=== PATIENT | female | born 1990 | race Caucasian/White ===

== ENCOUNTER 2019-09-15 11:32 | Emergency (ER) | payer BC ==
[2019-09-15 11:46] VITALS: BMI 25.4
[2019-09-15 11:59] LABS: BASO % 0.6 % (0-2.0); EOS % 1.5 % (0-4.5); HEMATOCRIT 34.5 % (32.4-45.2); HEMOGLOBIN 11.5 GM/dL (10.7-15.3); LYMPH % 23.9 % (8-40); MCHC 33.4 g/dl (32.0-36.0); MEAN CELL VOLUME 86.9 fl (80-96); MEAN PLT VOLUME 10.1 fl (7.5-11.1); MONO % 5.2 % (3.8-10.2); NEUT % 68.8 % (42.8-82.8); PLATELET COUNT 213 K/MM3 (134-434); RBC 3.97 M/mm3 (3.60-5.2); RDW 13.8 % (11.6-15.6); WHITE BLOOD COUNT 9.9 K/mm3 (4.0-10.0)
--- NOTE | 2019-09-15 12:15 | PDOC ---
History of Present Illness - General Chief Complaint: Vaginal Sxs Stated Complaint: 18 WEEKS WATER BROKE Time Seen by Provider: 09/15/19 11:37 - History of Present Illness Initial Comments: 09/15/19 12:14 HPI: 28 y/o F 18wks presenting with vaginal fluid discharge today. She reports nausea while making breakfast and 1 episode of emesis followed by a popping sound and a gush of fluid. She tried to lay down but had another episode of fluid from the vagina. She reported minimal lower abd cramping. She denies fever, chills, chest pain, SOB, vaginal bleeding, vaginal discharge, dysuria. PMHx: as noted above ROS: as noted SHx: Denies tobacco use; no alcohol use; no rec drugs Allergies: NKDA ROS: GENERAL/CONSTITUTIONAL: No fever or chills. No weakness. HEAD, EYES, EARS, NOSE AND THROAT: No change in vision. No ear pain or discharge. No sore throat. CARDIOVASCULAR: No chest pain or shortness of breath RESPIRATORY: No cough, wheezing, or hemoptysis. GASTROINTESTINAL: +nausea, vomiting; no diarrhea or constipation. GENITOURINARY: No dysuria, frequency, or change in urination. MUSCULOSKELETAL: No joint or muscle swelling or pain. No neck or back pain. SKIN: No rash NEUROLOGIC: No headache, vertigo, loss of consciousness, or change in strength/sensation. ENDOCRINE: No increased thirst. No abnormal weight change HEMATOLOGIC/LYMPHATIC: No anemia, easy bleeding, or history of blood clots. ALLERGIC/IMMUNOLOGIC: No hives or skin allergy. PE: GENERAL: Awake, alert, and fully oriented, no acute distress HEAD: No signs of trauma, normocephalic, atraumatic EYES: EOMI, sclera anicteric, conjunctiva clear ENT: Auricles normal inspection, hearing grossly normal, nares patent, oropharynx clear without exudates. Moist mucosa NECK: Normal ROM, no lymphadenopathy LUNGS: No increased work of breathing, symmetrical chest rise, clear to auscultation bilaterally, no wheezes, crackles or rhonchi HEART: Regular rate, regular rhythm, normal S1 and S2, no murmur, peripheral pulses 2+ and equal bilaterally. ABDOMEN: Soft, nondistended, nontender. No guarding, no rebound. No masses. No CVAT : normal appearing external genitalia with clear sticky fluid MUSCULOSKELETAL: FROM NEUROLOGICAL: Cranial nerves II through XII grossly intact. Normal speech, stable gait, no focal sensorimotor deficits SKIN: Warm, Dry, normal turgor, no rashes or lesions noted Past History - Medical History Allergies/Adverse Reactions: Allergies Allergy/AdvReac Type Severity Reaction Status Date / Time No Known Allergies Allergy Verified 10/26/14 11:26 Home Medications: Ambulatory Orders Azithromycin 250 mg PO DAILY #4 tablet 10/26/14 Anemia: No Asthma: No Cancer: No CVA: No COPD: No - Surgical History Abdominal Surgery: No Appendectomy: Yes Cholecystectomy: No Gastric Stapling: No - Reproductive History Is Patient Now?: Yes (#): 1 Para: 0 - Immunization History Td Vaccination: Yes TDAP Vaccination: Yes Immunization Up to Date: No - Psycho-Social/Smoking History Smoking Status: No Smoking History: Never smoked Have you smoked in the past 12 months: No Number of Cigarettes Smoked Daily: 0 Information on smoking cessation initiated: No - Substance Abuse Hx (Audit-C & DAST Scrn) How often the patient has a drink containing alcohol: Never Score: In Men: 4 or > Positive; In Women: 3 or > Positive: 0 Screen Result (Pos requires Nsg. Audit-10AR): Negative In the last yr the pt used illegal drug/Rx for NonMed reason: No Score: Yes response is considered Positive: 0 Screen Result (Positive result requires Nsg. DAST-10): Negative *Physical Exam - Vital Signs Last Vital Signs Temp Pulse Resp BP Pulse Ox 137 H 20 125/80 100 09/15/19 11:43 09/15/19 11:43 09/15/19 11:43 09/15/19 11:43 ED Treatment Course - LABORATORY CBC & Chemistry Diagram: 09/15/19 11:50 09/15/19 11:50 - ADDITIONAL ORDERS Additional order review: 09/15/19 11:50 RBC 3.97 MCV 86.9 MCHC 33.4 RDW 13.8 MPV 10.1 Neutrophils % 68.8 D Lymphocytes % 23.9 D Monocytes % 5.2 Eosinophils % 1.5 Basophils % 0.6 Medical Decision Making - Medical Decision Making 09/15/19 13:40 28 y/o F 18wks presenting with vaginal fluid discharge today following an episode of emesis in the setting of recent US with dilated cervix. HR 137. Concern for PPROM. -cbc, cmp, t&s, pelvic US -consult Ob Dr Soto 09/15/19 14:27 US with minimal amniotic fluid and single iup [address] soto and patient at length; discussed 2 options, volunatry induction to abort or to DC home with return pcxns for spontaneous recommending 2g ancef patient would like to go home with strict return pcxns including fever or wrosening pain Discharge - Discharge Information Problems reviewed: Yes Clinical Impression/Diagnosis: Premature rupture of membranes, premature rupture of membranes Condition: Stable Disposition: HOME - Follow up/Referral Referrals: Lisa Soto MD [Staff Physician] - ON STAFF,NOT [Primary Care Provider] - - Patient Discharge Instructions Patient Printed Discharge Instructions: Labor, Premature Rupture of Membranes Additional Instructions: your ultrasound shows premature rupture of membranes, low amniotic fluid, and an open cervix. you will likely go on to go into pre-term labor. you also were given option of being induced into labor to avoid high infection risk associated with expectant waiting in the setting of ruptured membranes. your ultrsaound today showed the fetus at 18 weeks. you should return for any fever, severe pain, persistant vomiting or any concerns. you need to have repeat blood work drawn in 48 hours to evaluate for developement of infection. you may also follow up with DR Monroy , Crayon Molding Machine Operator. see referral information and call to schedule an appointment. - Post Discharge Activity
[2019-09-15 12:16] LABS: ALBUMIN 2.9 g/dl (3.4-5.0); BILIRUBIN,TOTAL 0.3 mg/dL (0.2-1); BLOOD UREA NITROGEN 8.7 mg/dL (7-18); CALCIUM 8.7 mg/dL (8.5-10.1); CREATININE 0.8 mg/dL (0.55-1.3); POTASSIUM 3.7 mmol/L (3.5-5.1)
--- NOTE | 2019-09-15 12:16 | PDOC ---
Attending Attestation - Resident Resident Name: Stephanie Wilson - ED Attending Attestation I have performed the following: I have examined & evaluated the patient, The case was reviewed & discussed with the resident, I agree w/resident's findings & plan, Exceptions are as noted - HPI HPI: 09/15/19 12:11 28 yo F currently 18 weeks by 7 week us dates MUNIRA 02/15 here with sudden onset of fluid per vagina. pt states she was told her cervix was short and opened recently. was puton bedrest for last week. and today she threw up, shortly after had gush of fluid, no vaginal bleeding. lied down. had second gush of fluid. no f/c no other complaints. - Physicial Exam PE: 09/15/19 12:13 awake alert lungs clear bilat heart rrr no mrg abd soft nt nd ext wwp. ext vagina with mucousy clear fluid, no pelvic performed due to concerns for rutpure membranes. - Medical Decision Making 09/15/19 12:13 28 yo F 18 weeks , with concerns for premature rupture of membranes. plan transabd us, d/w dr monroy lead electrical controls engineer OB. transabdominal us with decreased amniotic fluid, and open cervix. 09/15/19 12:26 dr tadeo pt primary Family practice doc called at [phone] 09/15/19 13:04 Jay regalado informed pt update. had seen her for routine care. pt blood type AB positive 09/15/19 14:01 us with low fluid, pos heart rate. cervix open. c/w ruptured membranes. seen and examined by DR Monroy. offered induction vs. expectant management. pt advised regarding risk of infection if she chooses expetant management. given dose of ancef 2g, dc home. will require close fu to hav ongoing eval for high infection risk d/w dr Tadeo her pcp. pt dc to home. Discharge - Discharge Information Problems reviewed: Yes Clinical Impression/Diagnosis: Premature rupture of membranes, premature rupture of membranes Condition: Stable Disposition: HOME - Admission No - Follow up/Referral Referrals: ON STAFF,NOT [Primary Care Provider] - Lisa Thomson MD [Staff Physician] - - Patient Discharge Instructions Patient Printed Discharge Instructions: Premature Rupture of Membranes, Labor Additional Instructions: your ultrasound shows premature rupture of membranes, low amniotic fluid, and an open cervix. you will likely go on to go into pre-term labor. you also were given option of being induced into labor to avoid high infection risk associated with expectant waiting in the setting of ruptured membranes. your ultrsaound today showed the fetus at 18 weeks. you should return for any fever, severe pain, persistant vomiting or any concerns. you need to have repeat blood work drawn in 48 hours to evaluate for developement of infection. you may also follow up with DR Monroy , Carpet Binder. see referral information and call to schedule an appointment. - Post Discharge Activity
[2019-09-15 13:14] VITALS: TEMP 98.9
[2019-09-15] MEDS ORDERED: ceFAZolin 2 GRAM PREMIX BAG IVPB ONE (13:15)
[2019-09-15] MEDS ORDERED: CEFAZOLIN 2 GM in DEXTROSE 5%-WATER - 50 ML IVPB ONE (13:18)
--- NOTE | 2019-09-15 13:26 | CON.OBG ---
Consult Consult Specialty:: dental ceramist Referred by:: Steve kohler Res, MD Reason for Consultation:: 18 wks PPROM - History of Present Illness Chief Complaint: 28 yrs , 18 wks GA c/o PPROM since 11.00AM large amount of fluid . no c/o bleeding , no c/o cramps , FM felt . EDC by celena peterssigned is 02/16/20 History of Present Illness: PNC in [place] with PMD , Dr Reyes. pt states her pn course was uneventful. Dates not known . her dating sono at 7 weeks she is assigned EDC 02/16/20 . Her last anatomy sono was done 1 week ago , she only knows they were concerned about cervix . Pt portal on phone lab results noted . 08/30 : AB pos , HBS ag neg , Rubella immune , gc/ct neg, urinr c/s neg , pap was done , Quantiferon neg. Bl Gl 113 . rx po vit & po Pyridoxine 25 mg daily - History Source History Provided By: Patient, Medical Record Limitations to Obtaining History: No Limitations - Past Medical History Cardio/Vascular: No: HTN, Murmur Pulmonary: No: Asthma Gastrointestinal: Yes: Other (none known ) Hepatobiliary: No: Hepatitis B Renal/: No: UTI ...: Yes ...: 3 (G1 2012 sp ab 1st trimester ) ...Para: 1 (G2 02/2014 at [facility], Fullterm , no complications ) Infectious Disease: Yes: Other (declined ) Psych: No: Addictions, Anxiety, Bipolar, Depression, Panic, Psychosis, Schizophrenia, Other Endocrine: No: Diabetes Mellitus, Hyperthyroidism, Hypothyroidism - Past Surgical History Past Surgical History: Yes: Appendectomy (2 months post , Early 2014 ) - Alcohol/Substance Use Hx Alcohol Use: No History of Substance Use: reports: None - Smoking History Smoking history: Never smoked Have you smoked in the past 12 months: No Aproximately how many cigarettes per day: 0 Home Medications - Allergies Allergies/Adverse Reactions: Allergies Allergy/AdvReac Type Severity Reaction Status Date / Time No Known Allergies Allergy Verified 10/26/14 11:26 - Home Medications Home Medications: Ambulatory Orders Azithromycin 250 mg PO DAILY #4 tablet 10/26/14 Physical Exam-BLAST FURNACE HELPER Vital Signs: Vital Signs Temperature 98.9 F 09/15/19 11:43 Pulse Rate 137 H 09/15/19 11:43 Respiratory Rate 20 09/15/19 11:43 Blood Pressure 125/80 09/15/19 11:43 O2 Sat by Pulse Oximetry (%) 100 09/15/19 11:43 Selected Entries 09/15/19 11:43 Weight 209 lb Constitutional: Yes: Well Nourished, Obese Eyes: Yes: WNL HENT: Yes: WNL Neck: Yes: WNL Cardiovascular: Yes: WNL Respiratory: Yes: WNL Gastrointestinal: Yes: WNL Renal/: Yes: WNL, . No: CVA Tenderness - Left, CVA Tenderness - Right External Genitalia: Yes: Normal Vaginal Exam: Yes: Other (leaking grossly fluid) Cervix: Yes: Other (sterile glove exam cx close, presenting part high . leaking) Uterus: Yes: Other (18 weeks gravid uterus . FPF fhs pos as per sono Uterus non tender) Adnexa: Normal: Bilateral, Not Palpable: Bilateral (non tender ) Breast(s): Yes: Other (not examined) Extremities: Yes: WNL. No: Calf Tenderness Edema: No Integumentary: Yes: Tattoos Neurological: Yes: WNL, Alert, Oriented ...Motor Strength: WNL Psychiatric: Yes: WNL, Alert, Oriented Labs: CBC, BMP 09/15/19 11:50 09/15/19 11:50 Laboratory Tests 09/15/19 09/15/19 11:50 11:50 AST 18 ALT 15 Blood Type AB POSITIVE Antibody Screen Negative Problem List - Problems (1) 18 weeks gestation of Code(s): Z3A.18 - 18 WEEKS GESTATION OF (2) premature rupture of membranes (PPROM) delivered, current hospitalization Code(s): O42.919 - PRETRM CAROLINE ROM, UNSP TIME BETW RUPT AND ONST LABR, UNSP TRI Assessment/Plan 28 yrs , edc 02/16/20 18 weeks GA, PPROM . sono done today , SLIUP, 18.3 weeks, minimal AFluid around, cephalic presentation, cx 5.3cm long, int os 5mm ., efw 235 gm ( 8 oz) pt is explained about US findings options of Induction of labor versus expectant management discuss with significant other in room , nurse & resident r/b/a explained not ltd to spontaneous cramping labor onset may be 24-48 hrs or 7 days , possibility of infection, fever which can be danger to & maternal joann. Very minimal chances, next to none of rebuilding AFluid & sealing of membranes . possibility of retained placenta & hemorrhage may need intervention under anesthesia . I told her chances of survival of fetus negligible , no measures for resuscitation of fetus after will be taken due tp extreme prematurity & immaturity . pt has decided to go home. she is instructed to monitor Temp q 4 hrs. See her PMD tomorrow in AM' If cramping . I recommend her monitor with cbc alt day. If severe cramping, bleeding , or pass fetus return to ER . prophylactic 2 gm ivpb ancef to be given
[2019-09-15 13:46] VITALS: BP 138/62; PULSE 115
== END 2019-09-15 14:27 | disposition home or self-care (01) ==
LOC: JER 11:32
PROC: 3E03329 Introduction of Other Anti-infective into Peripheral Vein, Percutaneous Approach (ICD-10-PCS; principal; 2019-09-15)
PROC: 3E033GC Introduction of Other Therapeutic Substance into Peripheral Vein, Percutaneous Approach (ICD-10-PCS; 2019-09-15)
DX: O42.912 Preterm premature rupture of membranes, unspecified as to length of time between rupture and onset of labor, second trimester (principal); Z3A.18 18 weeks gestation of pregnancy
CPT/HCPCS: 36415; 76801-TC; 80053; 85025; 86850; 86900; 86901; 87070; 87205; 99285-25